=== PATIENT | female | born 1980 | race Caucasian/White ===

== ENCOUNTER 2023-08-07 14:56 | Emergency (ER) | payer OTHER, SELFPAY ==
[2023-08-07 15:03] VITALS: BP 148/91
[2023-08-07 16:35] VITALS: BMI 25.1
--- NOTE | 2023-08-07 17:09 | ED.GENMED ---
History of Present Illness
<Julio Raya PA-C - Last Filed: 08/07/23 20:12>
General
Chief Complaint: Fall
Source: patient
Time Seen by Provider: 08/07/23 16:29
Travel History
Have you had any contact with someone who has COVID-19?: No
Do you have any symptoms of coronavirus? Fever > 100 degrees, chills, cough, shortness of breath, sore throat, loss of taste or smell, muscle aches, or headache?: No
History of Present Illness
History of Present Illness:
43-year-old female presenting to the emergency department for evaluation following an accidental slip and fall at home stating she was turning a corner and slipped striking the left side of her head/neck onto the corner of a countertop now noting
left-sided head/neck pain with the left neck being the area where she is most on the blood. There was no reported loss of consciousness but patient did note she felt dazed following the event. She does admit to headache, light sensitivity and
noise sensitivity. Mild nausea but this is tolerable. She notes a history of concussions in the past. No other injuries were sustained.
Past History
<Julio Raya PA-C - Last Filed: 08/07/23 20:12>
Past History
ED Past Medical History: Other (Preeclampsia)
ED Past Surgical History: Appendectomy and Orthopedic
Social History
Tobacco: Non-smoker
Alcohol: None
Drug: None
Personal:
Living: with family
Family History
Family History: Other (Noncontributory)
Review of Systems
<Julio Raya PA-C - Last Filed: 08/07/23 20:12>
Review of Systems
All Other Systems: ROS reviewed and negative except as documented in HPI and ROS
Phy Exam
<Julio Raya PA-C - Last Filed: 08/07/23 20:12>
Physical Exam
Physical Exam:
GENERAL: Alert, appears uncomfortable
EYE: conjunctiva clear, pupils 4 mm bilateral, PERRL
Head: Normocephalic atraumatic
NECK: Supple, tenderness with edema over the left lateral neck with mild erythema. No carotid bruit, no pulsatile mass or expanding hematoma, no breaks in the skin. Range of motion limited secondary to pain, no midline tenderness
ENT: mmm.
LUNGS: no acute respiratory distress
NEUROLOGICAL: Alert and oriented, moves upper and lower extremities bilateral, sensation grossly intact to light touch
SKIN: Warm and dry, skin intact.
MUSCULOSKELETAL: well perfused.
PSYCH: Normal and appropriate interaction.
Scores
<Julio Raya PA-C - Last Filed: 08/07/23 20:12>
Heart Failure Risk
Heart Failure Risk Score: Not Applicable
Heart Score for Chest Pain Patients
STEMI patient?: Not applicable
Withdrawal Assessment of Alcohol
Withdrawal Assessment Completed?: Not applicable
Course
<Julio Raya PA-C - Last Filed: 08/07/23 20:12>
Orders/Labs/Results
Orders:
Orders
08/07/23 16:49
CT Cervical Spine W/o Iv Contr Urgent
Comment:
Reason For Exam: fall, neck pain
CT Head W/o Iv Contrast Urgent
Comment:
Reason For Exam: fall ,head injury
CT Neck Angio W/wo Iv Contrast Urgent
Comment:
Reason For Exam: fall, left sided neck edema/pain
08/07/23 16:53
Test Result ONCE
08/07/23 16:54
Ibuprofen [Motrin] 600 mg PO NOW STA
08/07/23 17:27
Basic Metabolic Panel Urgent
Complete Blood Count/With Diff Urgent
HCG, Serum Qualitative Screen Urgent
08/07/23 19:44
Cervical Collar- Treatment ONCE
Collar Type: Hard Cervical Collar
Abnormal Lab Results
08/07/23
17:27
RBC 3.71 L 10^6/uL
(4.20-5.40)
Hgb 10.9 L g/dL
(12.0-16.0)
Hct 31.4 L %
(37.0-47.0)
Absolute Neuts (auto) 6.8 H 10^3/uL
(1.4-6.5)
Neutrophils % 78.1 H %
(42.2-75.2)
Lymphocytes % 17.3 L %
(20.5-51.1)
08/07/23 17:27
08/07/23 17:27
Vital Signs
Initial and Last Documented VS:
Initial Vital Signs
Temp Pulse Resp BP Pulse Ox
98.2 F 86 18 148/91 97
08/07/23 15:03 08/07/23 15:03 08/07/23 15:03 08/07/23 15:03 08/07/23 15:03
Last Documented Vital Signs
Temp Pulse Resp BP Pulse Ox
98.2 F 88 18 143/98 98
08/07/23 15:03 08/07/23 20:00 08/07/23 20:00 08/07/23 20:00 08/07/23 20:00
Talent Assistant consulted with Physician
Talent Assistant consulted with physician?: Yes
Name of Physician Consulted: Mykel
<Luis F Hogue MD - Last Filed: 08/07/23 19:58>
Orders/Labs/Results
Orders:
Orders
08/07/23 16:49
CT Cervical Spine W/o Iv Contr Urgent
Comment:
Reason For Exam: fall, neck pain
CT Head W/o Iv Contrast Urgent
Comment:
Reason For Exam: fall ,head injury
CT Neck Angio W/wo Iv Contrast Urgent
Comment:
Reason For Exam: fall, left sided neck edema/pain
08/07/23 16:53
Test Result ONCE
08/07/23 16:54
Ibuprofen [Motrin] 600 mg PO NOW STA
08/07/23 17:27
Basic Metabolic Panel Urgent
Complete Blood Count/With Diff Urgent
HCG, Serum Qualitative Screen Urgent
08/07/23 19:44
Cervical Collar- Treatment ONCE
Collar Type: Hard Cervical Collar
Abnormal Lab Results
08/07/23
17:27
RBC 3.71 L 10^6/uL
(4.20-5.40)
Hgb 10.9 L g/dL
(12.0-16.0)
Hct 31.4 L %
(37.0-47.0)
Absolute Neuts (auto) 6.8 H 10^3/uL
(1.4-6.5)
Neutrophils % 78.1 H %
(42.2-75.2)
Lymphocytes % 17.3 L %
(20.5-51.1)
08/07/23 17:27
08/07/23 17:27
Vital Signs
Initial and Last Documented VS:
Initial Vital Signs
Temp Pulse Resp BP Pulse Ox
98.2 F 86 18 148/91 97
08/07/23 15:03 08/07/23 15:03 08/07/23 15:03 08/07/23 15:03 08/07/23 15:03
Last Documented Vital Signs
Temp Pulse Resp BP Pulse Ox
98.2 F 88 18 143/98 98
08/07/23 15:03 08/07/23 20:00 08/07/23 20:00 08/07/23 20:00 08/07/23 20:00
<Julio Raya PA-C - Last Filed: 08/07/23 20:12>
MDM/Problems Addressed
Differential Diagnosis Includes:
Contusion, concussion, C-spine injury, vascular injury, intracranial bleeding
MDM/Problems Addressed:
43-year-old female presenting emergency department for evaluation following head/neck injury and an accidental fall. I am most concerned for potential vascular injury given the left lateral neck swelling compared to the right side. CT angio of the
neck was ordered. I also ordered a plain noncontrast CT scan of the head/cervical spine Motrin ordered for pain relief.
<Julio Raya PA-C - Last Filed: 08/07/23 20:12>
*Radiology
Radiology exam reviewed: radiology read reviewed
*Pulse Oximetry
Patient hypoxic: no
*Critical Care Note
Total Time (30-74mins, 75-104mins- exclusive of procedures): Not Applicable
<Julio Raya PA-C - Last Filed: 08/07/23 20:12>
Patient Management
Discussion with other providers: Slip Tender and Radiologist
Escalation/DeEscalation of care consider admission/obs:
7:45 PM: Notified by radiologist that patient has an acute nondisplaced fracture of the left C1 transverse process extending into the transverse foramen. There is no evidence for injury to the left vertebral artery. There is large edema of the
soft tissues likely soft tissue contusion.
7:55 PM: Case discussed with on-call neurosurgeon, Dr. العراقي, states it is okay for the patient to be discharged home in a cervical collar and they will follow-up with the patient in office this week.
Patient was provided with printouts of her CT reports as well as a disc of her CT imaging. She was provided with information for neurosurgery to follow-up. Encouraged to continue NSAIDs. Valium prescription sent to pharmacy for pain as needed.
Hard cervical collar was provided. Aware of return precautions emergency department but otherwise stable for discharge home.
ED Attending Note
<Julio Raya PA-C - Last Filed: 08/07/23 20:12>
-
Portions of this chart may have been created with voice recognition software.� Occasional wrong word or��sound alike� substitutions may have occurred due to the inherent limitations of voice recognition software.
<Luis F Hogue MD - Last Filed: 08/07/23 19:58>
ED Attending Note
Patient seen and examined by attending physician: Yes
ED Attending Note:
I have seen and evaluated the patient with a [id number] encounter. I have spoken to the advance practicer provider and involved in the medical history, the physical exam, medical decision making.
Evaluation and management service: agree unless noted differently below.
Results interpretation: agree unless noted differently below.
Focused HPI: 41-year-old female with history as documented presents for evaluation of neck injury. Patient says that she tripped on a piece of clothing and fell from ground-level and while she was falling struck the left side of her neck and jaw on
the corner of the counter top. She did not hit her head did not lose consciousness. Has had pain in the left side of her neck since then. She also noted some slight swelling. Denies headache. Denies any numbness or weakness of extremities. No
breathing difficulties. Not on blood thinners.
Physical exam: Awake alert oriented x 3 with GCS 15. Mildly hypertensive otherwise normal vitals. Show some very slight soft tissue swelling of the left lateral neck but no bruising or expanding hematoma. Airway is intact. Cervical spine
tenderness. 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
Medical Decision Makin-year-old female presents after ground-level fall with trauma to the left neck. Exam as above. Sent for a CT of the head as well as a CT of the cervical spine and CTA of the neck. CT head negative, imaging the neck
shows nondisplaced fracture of the left C1 transverse process but no signs of vascular injury or compromise. PA discussed case with neurosurgery: recommended placing patient in a hard collar, can be discharged and will follow-up in the office this
week.
Discharge Plan
Departure
Patient Disposition: Home (Routine Discharge)
Date of Disposition: 08/07/23
Time of Disposition: 19:56
Patient with high blood pressure during this ER visit?: Yes
Discharge Problem:
c1 transverse process fracture
Instructions: Neck Fracture (DC)
Prescriptions:
New
diazepam [Valium] 5 mg tablet
5 mg PO BID PRN (Reason: muscle spasm) Qty: 10 0RF
No Action
[id number] [ Multi] 1 EACH tablet
1 tab PO DAILY
oxycodone-acetaminophen 5 MG/325 MG tablet
1 tab PO Q4HPRN PRN (Reason: pain) Qty: 30 0RF
Referrals:
Breezy العراقي DO [Active] - (Neurosurgery - Call for appointment in the morning)
Robert Moser MD [Family Provider] -
Stand Alone Forms: Return to Work
Interventions
Interventions:
*Risk Screen - Suicide Last Done: 08/07/23 15:03
*General Assessment Last Done: 08/07/23 15:03
*Neglect/Abuse Screening Last Done: 08/07/23 15:03
ED- Fall Risk Assessment Last Done: 08/07/23 16:35
*ED COVID-19 Vaccine History Last Done: 08/07/23 15:03
ED-Musculoskeletal Assessment Last Done: 08/07/23 16:35
ED- Neurological Assessment Last Done: 08/07/23 16:35
ED-Skin Assessment Last Done: 08/07/23 16:38
[2023-08-07] MEDS: MOTRIN 600 MG PO (17:16)
[2023-08-07 17:35] LABS: % Basophils 0.5 % (0-2); % Eosinophils 0.1 % (0-6); % Immature Granulocytes 0.2 % (0-0.5); % Lymphocytes 17.3 % (20.5-51.1); % Monocytes 3.8 % (1.7-9.3); % Neutrophils 78.1 % (42.2-75.2); Absolute Lymphocytes 1.5 10^3/uL (1.2-3.4); Absolute Monocytes 0.3 10^3/uL (0.1-0.6); Absolute Neutrophils 6.8 10^3/uL (1.4-6.5); Hematocrit 31.4 % (37.0-47.0); Hemoglobin 10.9 g/dL (12.0-16.0); Mean Corp Hgb Conc. 34.7 g/dL (33.0-37.0); Mean Corpuscular Hgb 29.4 pg (27.0-31.0); Mean Corpuscular Volume 84.6 fL (81.0-99.0); Mean Platelet Volume 9.2 fL (7.4-10.4); Nucleated Red Blood Cells % 0 %; Platelet Count 284 10^3/uL (130-400); Red Blood Cell Count 3.71 10^6/uL (4.20-5.40); Red Cell Dist. Width 12.8 % (11.5-14.5); White Blood Cell Count 8.8 10^3/uL (4.8-10.8)
[2023-08-07 17:47] LABS: HCG, Serum Qualitative Screen Negative
[2023-08-07 17:50] LABS: Blood Urea Nitrogen 12 mg/dl (7-17); Calcium 9.4 mg/dl (8.4-10.2); Carbon Dioxide 29 mmol/L (22-30); Chloride 101 mmol/L (98-107); Estimated Creatinine Clearance 105 ml/min; Glucose 88 mg/dl (70-99); Potassium 3.6 mmol/L (3.5-5.1); Sodium 138 mmol/L (135-145); eGFR > 60.00
[2023-08-07 20:00] VITALS: BP 143/98
== END 2023-08-07 20:16 | disposition home or self-care (01) ==
LOC: EMR 14:56
PROVIDERS: Physician Assistant Medical; EMERGENCY PHYSICIAN Emergency Medicine; FAMILY PHYSICIAN Family Medicine
DX: S12.001A Unspecified nondisplaced fracture of first cervical vertebra, initial encounter for closed fracture (principal); W01.198A Fall on same level from slipping, tripping and stumbling with subsequent striking against other object, initial encounter; R03.0 Elevated blood-pressure reading, without diagnosis of hypertension
CPT/HCPCS: 99285; 70450; 70498; 72125; 80048; 84703; 85025; Q9967

== ENCOUNTER → 2025-04-03 13:53 | Outpatient (REF) | payer OTHER, SELFPAY | LOC: WDC 13:53 | PROVIDERS: ATTENDING PHYSICIAN Family Medicine | DX: Z12.31 Encounter for screening mammogram for malignant neoplasm of breast (principal) | CPT/HCPCS: 77063; 77067 ==